=== PATIENT | male | born 1985 | race Caucasian/White ===

== ENCOUNTER 2020-05-01 07:06 | Emergency (ER) | payer OTHER ==
[~2020-05-01] VITALS: Ht 180 cm; Wt 85.0 kg
[2020-05-01] MEDS ORDERED: PHENYLEPHRINE 0.25% NASAL SPR (NEO-SYNEPHRINE) 15 ML NS ONE (07:20)
--- NOTE | 2020-05-01 07:41 | ED EENT ---
History of Present Illness General Chief Complaint: Nasal Problems Stated Complaint: NOSE BLEED Nursing Triage Note: Patient reports nosebleed since 0400 this morning, states he is able to slow it down by packing it with tissue, but it still drips down the back of his throat. Source: patient History of Present Illness Date Seen by Provider: May 01, 2020 Time Seen by Provider: 07:08 Initial Comments 34-year-old male presenting with epistaxis since 4 AM. He states that he has been trying to control the bleeding since it started this morning but has not been able to get it to stop. He had been using tissue and packing at home but it continued to drip down the back of his throat. He states he does work on the [employer] and has a lot of dust and debris in the ear that he breathes in. He feels like his nose gets very dirty and at the end of the day he gets overaggressive with trying to clean it out. He does not usually have issues with nosebleeds. He did have the flu a few weeks ago. He thought that he might of scratched his nose and that may have contributed to the nosebleed. He does not take any medicines regularly and has no allergies to medicines. He felt like the bleeding was mainly from the left side but would cross over to the right. Allergies and Home Medications Allergies Coded Allergies: No Known Drug Allergies (Unverified , 05/01/20) Patient Home Medication List Home Medication List Reviewed: Yes Review of Systems Review of Systems Constitutional: No chills, No fever Eyes: No Symptoms Reported Ears: No Symptoms Reported Nose: see HPI Mouth: no symptoms reported Throat: no symptoms reported Respiratory: no symptoms reported Cardiovascular: no symptoms reported Gastrointestinal: no symptoms reported Musculoskeletal: no symptoms reported Skin: no symptoms reported Neurological: No Symptoms Reported Hematologic/Lymphatic: Denies Anemia, Denies Blood Clots, Denies Easy Bleeding, Denies Easy Bruising Immunological/Allergic: no symptoms reported Past Xfdxxye-Nkpxeu-Xgsfgy Hx Past Med/Social Hx: Reviewed Nursing Past Med/Soc Hx Patient Social History Recent Infectious Disease Expo: No Past Medical History Surgeries: No Respiratory: No Cardiac: No Neurological: No Genitourinary: No Gastrointestinal: No Musculoskeletal: No Endocrine: No HEENT: No Cancer: No Psychosocial: No Physical Exam Vital Signs Vital Signs - First Documented 05/01/20 07:12 Temp 36.8 Pulse 71 Resp 16 B/P (MAP) 158/91 (113) Pulse Ox 99 O2 Delivery Room Air Height, Weight, BMI Height: '" Weight: lbs. oz. kg; 26.00 BMI Method: General Appearance: WD/WN, mild distress (Due to not being able to stop his nosebleed) Eyes: bilateral eye normal inspection, bilateral eye PERRL, bilateral eye EOMI Nose: active bleeding (Bleeding and oozing from the septum on the left side); No sinus tenderness Mouth/Throat: normal mouth inspection, pharynx normal Neck: non-tender, full range of motion, supple, normal inspection Cardiovascular: normal peripheral pulses, regular rate, rhythm Respiratory: chest non-tender, lungs clear, normal breath sounds Neurologic/Psychiatric: alert, normal mood/affect, oriented x 3 Skin: normal color, warm/dry Procedures/Interventions Nasal : Nasal Location: Left Clots Cleared from Nasal: Patient Blowing Nasal Drops Instilled: Sandro-Synephrine Inspection with: Otoscope, Nasal Speculum Nasal Procedures: Cauterized w/Silver Nitra, Gauze Progress Initially patient was counseled on appropriate area to hold pressure. Then after 5 minutes of direct pressure the area was reevaluated but was continuing to ooze. Then using Sandro-Synephrine and ice packs the patient was advised to hold pressure for 5 to 10 minutes. On recheck he continued to have some oozing so I personally held pressure and showed him how to hold pressure directly over the nasal septum. This had much better effect of controlling his bleeding. He was holding pressure too low and not directly over the septum. When reevaluated after for 5 minutes of me holding direct pressure over his nasal septum the area had significantly slowed and bleeding and a silver nitrate stick was used to cauterize where the oozing h ad been previously. This seemed to control his bleeding and no further active bleeding was seen. Then the patient held pressure and used an ice pack for an additional 5 to 10 minutes. At that point when it was reevaluated he had no further bleeding. Counseled on follow-up and return precautions. Use a small amount of triple antibiotic applied with a Q-tip to help keep the area moist. Progress/Results/Core Measures Results/Orders My Orders Orders - CLARE YING MD Phenylephrine 0.25% Nasal Spra (Sandro-Syne (05/01/20 07:20) Phenylephrine 0.25% Nasal Spra (Sandro-Syne (05/01/20 07:45) Medications Given in ED Current Medications Medications Dose Ordered Sig/Arturo Route Start Time Stop Time Status Last Admin Dose Admin Phenylephrine HCl 1 OR 2 SPRAYS TO NOSTRIL Q4H PRN NS 05/01/20 07:45 05/01/20 08:46 DC 05/01/20 07:36 15 ML Vital Signs/I&O 05/01/20 05/01/20 07:12 08:37 Temp 36.8 Pulse 71 71 Resp 16 16 B/P (MAP) 158/91 (113) 131/78 Pulse Ox 99 99 O2 Delivery Room Air Room Air Blood Pressure Mean: 113 Progress Progress Note : Progress Note On initial evaluation of the patient I had him remove his toilet paper tissue that he was using for packing and gently blow his nose to clear clot. He also spit up some clot from the back of his nose and throat. Then tried to apply pressure over the septum for 5 minutes straight period. 0725 Patient wanted to hold pressure on his own so after a minute of holding pressure I allowed him to do this. In the meantime under, a bottle of Sandro- Synephrine and an ice pack were obtained. Counseled patient about using ice both sucking on ice chips to constrict the blood vessels in his roof of his mouth and nasal plexus as well as an ice pack over the bridge of his nose. Using the Sandro-Synephrine help constrict his blood vessels and holding pressure. After another 5 minutes of holding pressure by the patient the nasal septum was reevaluated. The bleeding had slowed with holding more appropriate pressure however he continued to ooze so a nasal spray of the Sandro-Synephrine was given and the ice both by oral and nasal bridge was tried. Patient was advised to try using pressure for at least 5 to 10 minutes and will recheck. 0736 When rechecked he was still using little more posteriorly on the septum but the patient was also noted to be holding pressure lower on his nose and not directly over the septum. A silver nitrate stick was requested. While the nurse was retreating that I personally held pressure over the nasal septum by holding direct pressure over the fleshy part of his nose for 5 minutes straight. When the area was reevaluated after this 5 minutes the bleeding had significantly slowed and almost stopped. A silver nitrate stick was taken and used to cauterize the surface of the nasal septum on the left side where using had been seen. Then the patient applied pressure over the fleshy part of the nose so that it was directly over the nasal septum. He also use the ice pack over the bridge of his nose. He continue to hold pressure for 5 to 10 minutes while allowing the silver nitrate cauterized area to rest. 0750 On recheck of the patient he had no active bleeding. He had no further clot and blood going down the back of his throat. Counseled on follow-up and return precautions. Advised what to do if the bleeding started again. A thin layer of antibiotic ointment was applied and advised that he could use Vaseline or antibiotic ointment to help keep his nose moist. He could also use a nasal saline spray. Counseled on ways he could try to clean his nose at the end of the workday as well as using the mask or better protection to help prevent breathing in dust and debris at work. Given information about Dr. Booker and the ENT office as well as return precautions if he started bleeding and could not control it on his own. Departure Impression Primary Impression: Epistaxis Disposition: 01 HOME, SELF-CARE Condition: Stable Departure-Patient Inst. Decision time for Depature: 08:18 Referrals: NADER BOOKER MD [facility],LOCAL PHYSICIAN (PCP) Primary Care Physician Patient Instructions: Humidifiers, Nosebleeds, Nosebleeds (DC) Add. Discharge Instructions: Try using vaseline or antibiotic ointment at least 2 to 3 times a day applied as a thin layer in your nose to help keep it moist. Use a Q tip to apply this so you do not scratch your nose and cause more trauma or bleeding. Use a saline spray to help rinse or clean your nose if you get a lot of dust and debris at work in your nose. Use the mask to cover your nose and help limit the dust and debris that gets in your nose If the bleeding starts again try holding direct pressure over the soft part of your nose for at least 5 minutes. If this does not stop the bleeding then use a spray of the Sandro-Synephrine to help constrict the blood vessels and ice pack ove r your nose while holding pressure for 5 minutes to see if that controls the bleeding. If this still does not stop the bleeding then you will need to be seen again by Dr. Booker or one of his assistants with ENT or return to be seen in ED Use a humidifier at bedside to help keep your nasal passages moist while sleeping. All discharge instructions reviewed with patient and/or family. Voiced understanding. Work/School Note: Work Release Form Date Seen in the Emergency Department: May 01, 2020 Return to Work: May 01, 2020 Restrictions: No Restrictions CLARE YING MD May 01, 2020 07:41
[2020-05-01] MEDS ORDERED: PHENYLEPHRINE 0.25% NASAL SPR (NEO-SYNEPHRINE) 15 ML NS PRN (07:45)
[2020-05-01 08:37] VITALS: BP 131/78
== END 2020-05-01 08:40 | disposition home or self-care (01) ==
LOC: ER FS 07:14
DX: R04.0 Epistaxis (principal)
CPT/HCPCS: 99283

== ENCOUNTER 2020-05-01 10:24 | Emergency (ER) | payer OTHER ==
[~2020-05-01] VITALS: Ht 175 cm; Wt 90.0 kg
[2020-05-01 10:44] VITALS: BP 138/72
--- NOTE | 2020-05-01 11:05 | ED EENT ---
History of Present Illness General Chief Complaint: Nasal Problems Stated Complaint: NOSE BLEED Nursing Triage Note: PT HAS RETURNED FROM A VISIT THIS AM WITH A NOSE BLEED. HE REPORTS HE TRIED PRESSURE WITHOUT RELIEF. Source: patient History of Present Illness Date Seen by Provider: May 01, 2020 Time Seen by Provider: 10:25 Initial Comments 34-year-old male presents with recurrent epistaxis. He was seen earlier this morning by me for nosebleed. The bleeding was controlled with pressure and cautery using silver nitrate. He states that after leaving here he had gone home and was cleaning the blood from the nosebleed as well as trying to get ready for work. He had been doing a lot of bending over while trying to clean up the blood. He also was trying to get regular with a hot shower. He suddenly started having bleeding again from his nose. He states that he tried holding pressure but it was not helping. When he arrived in the ED he was again holding pressure low over his the tip of his naris rather than over the soft fleshy part of his nose so he was not effectively holding pressure on the septum. Allergies and Home Medications Allergies Coded Allergies: No Known Drug Allergies (Unverified , 05/01/20) Patient Home Medication List Home Medication List Reviewed: Yes Review of Systems Review of Systems Constitutional: no symptoms reported Eyes: No Symptoms Reported Ears: No Symptoms Reported Nose: see HPI Respiratory: no symptoms reported Cardiovascular: no symptoms reported Skin: no symptoms reported Neurological: No Symptoms Reported Past Vapnhmt-Rfbpzo-Hckaoe Hx Past Med/Social Hx: Reviewed Nursing Past Med/Soc Hx Patient Social History Alcohol Use: Occasionally Uses Number of Drinks Today: AA Alcohol Beverage of Choice: Beer Type Used: Cigarettes 2nd Hand Smoke Exposure: No Recent Infectious Disease Expo: No Recent Hopitalizations: No Seasonal Allergies Seasonal Allergies: No Past Medical History Surgeries: No Respiratory: No Cardiac: No Neurological: No Genitourinary: No Gastrointestinal: No Musculoskeletal: No Endocrine: No HEENT: No Cancer: No Psychosocial: No Integumentary: No Physical Exam Vital Signs Vital Signs - First Documented 05/01/20 10:44 Temp 35.8 Pulse 72 Resp 18 B/P (MAP) 138/72 (94) Pulse Ox 99 O2 Delivery Room Air Height, Weight, BMI Height: '" Weight: lbs. oz. kg; 29.00 BMI Method: General Appearance: WD/WN, mild distress (Anxious) Nose: other (After applying direct pressure for 5 minutes and looking in his nares on the left side he had cauterized area but no active bleeding present.) Mouth/Throat: normal mouth inspection, pharynx normal Neurologic/Psychiatric: alert, oriented x 3 Skin: normal color, warm/dry Progress/Results/Core Measures Results/Orders Vital Signs/I&O 05/01/20 10:44 Temp 35.8 Pulse 72 Resp 18 B/P (MAP) 138/72 (94) Pulse Ox 99 O2 Delivery Room Air Blood Pressure Mean: 94 Progress Progress Note : Progress Note Just by holding direct pressure for 5 minutes over the nasal septum the bleeding was controlled. He had no further area of bleeding seen on direct visualization. His blood pressure had improved from previous visit. Counseled on follow-up and return precautions. Advised to hold pressure again directly over the septum and not just over the tip of his naris. Stressed importance of relaxing and resting. Advised not to return to work today. Make sure he is not active and putting extra stress on his nose and hea d. Bending over increases the blood pressure and stress on the blood vessels in his nose. Given a note to be off until tomorrow. Counseled to continue with other previous precautions. Departure Impression Primary Impression: Recurrent epistaxis Disposition: HOME, SELF-CARE Condition: Stable Departure-Patient Inst. Decision time for Depature: 11:03 Referrals: NADER BOOKER MD [facility] (PCP/Family) Primary Care Physician Patient Instructions: Humidifiers, Nosebleeds, Nosebleeds (DC) Add. Discharge Instructions: Limit your activity and no bending over or working for next 24 hours to allow your nose to have time to heal. Try holding direct pressure over the soft part of your nose so it applies pressure to the septum where your bleeding was coming from for at least 5 minutes if this starts up again at home. Return or seek care with Dr. Booker and ENT if continues to recur All discharge instructions reviewed with patient and/or family. Voiced understanding. Work/School Note: Work Release Form Date Seen in the Emergency Department: May 01, 2020 Return to Work: May 02, 2020 Restrictions: No Restrictions CLARE YING MD May 01, 2020 11:05
== END 2020-05-01 11:08 | disposition home or self-care (01) ==
LOC: EDUNIT# 10:24 → ER FS 10:26
DX: R04.0 Epistaxis (principal)
CPT/HCPCS: 30901

== ENCOUNTER 2020-07-19 06:35 | Emergency (ER) | payer OTHER ==
[~2020-07-19] VITALS: Ht 187.9 cm; Wt 83.9 kg
--- NOTE | 2020-07-19 06:52 | ED Psychosocial ---
General Stated Complaint: INTOXICATED,AMS History of Present Illness Date Seen by Provider: July 19, 2020 Time Seen by Provider: 06:40 Initial Comments 35-year-old male presents by private vehicle with his mother bringing him in concerned of mental status change. Patient admits to drinking Bacardi rum and alcohol last night as well as he took some sleeping pills. Not sure why his mother brought him in. He does not want medical care and does not want evaluation. (THEASTINEJON L DO) Initial Comments 0923 Patient slowly became less intoxicated and back to his baseline mental status and ambulation. Patient was discharged home with his parents in stable condition. Patient continued to not want medical care or evaluation. (CHRISTINA LUNAR Shemar MIRANDA) Allergies and Home Medications Allergies Coded Allergies: No Known Drug Allergies (Unverified , 05/01/20) Patient Home Medication List Home Medication List Reviewed: Yes (ROVENSTINE,JON L DO) Review of Systems Constitutional: No fever, No malaise Respiratory: no symptoms reported Cardiovascular: no symptoms reported Gastrointestinal: no symptoms reported Musculoskeletal: no symptoms reported Skin: no symptoms reported Psychiatric/Neurological: Denies Depressed, Denies Emotional Problems; Other (no SI) (ROVENSTINE,JON L DO) Past Daolprr-Rahzrl-Quyiyi Hx Past Med/Social Hx: Reviewed Nursing Past Med/Soc Hx (ROVENSTINEJON L DO) Patient Social History Alcohol Beverage of Choice: Beer Type Used: Cigarettes 2nd Hand Smoke Exposure: No Recent Hopitalizations: No (ROVENSTINE,JON L DO) Seasonal Allergies Seasonal Allergies: No (ROVENSTINE,JON L DO) Past Medical History Surgeries: No Respiratory: No Cardiac: No Neurological: No Genitourinary: No Gastrointestinal: No Musculoskeletal: No Endocrine: No HEENT: No Cancer: No Psychosocial: No Integumentary: No (ROVENSTINE,JON L DO) Physical Exam Vital Signs - First Documented 07/19/20 06:49 Temp 36.1 Pulse 130 Resp 19 B/P (MAP) 164/97 (119) O2 Delivery Room Air (ARAMIS LUNA DO) Capillary Refill : (ROVENSTINE,JON L DO) Height, Weight, BMI Height: '" Weight: lbs. oz. kg; 29.00 BMI Method: General Appearance: WD/WN, no apparent distress HEENT: PERRL/EOMI, normal ENT inspection, other (dry MM) Neck: non-tender, full range of motion, supple Respiratory: chest non-tender, lungs clear, normal breath sounds, no respiratory distress Cardiovascular: regular rate, rhythm, no edema, no JVD Gastrointestinal: normal bowel sounds, non tender, soft Extremities: non-tender, normal inspection Neurologic/Psychiatric: other (clinically intoxicated, slurred speech and incoordination) Behavior/Eye Contact: cooperative, good eye contact Thoughts/Hallucinations: no apparent hallucination Skin: normal color, warm/dry (JON MARVIN DO) Progress/Results/Core Measures Results/Orders Vital Signs/I&O 07/19/20 06:49 Temp 36.1 Pulse 130 Resp 19 B/P (MAP) 164/97 (119) O2 Delivery Room Air (ARAMIS LUNA DO) Transfer of Care Time: 07:00 Care transferred to: Dr Luna (JON MARVIN DO) Departure Impression Primary Impression: Intoxication Disposition: 01 HOME, SELF-CARE Condition: Stable Departure-Patient Inst. Referrals: [facility] (PCP/Family) Primary Care Physician Patient Instructions: ALCOHOL AND SUBSTANCE ABUSE, Alcohol Intoxication ED JON MARVIN DO July 19, 2020 06:52 ARAMIS LUNA DO July 19, 2020 09:54
[2020-07-19 10:16] VITALS: BP 158/85
== END 2020-07-19 09:57 | disposition home or self-care (01) ==
LOC: EDUNIT# 06:35 → ER FS 06:37
DX: F10.929 Alcohol use, unspecified with intoxication, unspecified (principal)
CPT/HCPCS: 99283